=== PATIENT | female | born 1945 | race Caucasian/White ===

== ENCOUNTER 2017-06-05 22:07 | Inpatient (IN) | payer MEDICARE, OTHER ==
[~2017-06-05] VITALS: Ht 175.3 cm; Wt 63.5 kg
[2017-06-05 23:12] LABS: ACETAMINOPHEN < 2.0 ug/mL (10-30)
--- NOTE | 2017-06-05 23:35 | NUR ---
PT IN BED RESTING QUIETLY WATCHING TV. BED IN LOWEST POSITION. BEDRAIL UP. CALL LIGHT WITHIN REACH. NO SIGNS/SYMPTOMS OF DISTRESS WITNESSED BY NURSE OR EXPRESSED BY PT AT THIS TIME.
--- NOTE | 2017-06-05 23:50 | NUR ---
REPORT GIVEN TO GOLDY VICTORIA
[2017-06-06 00:35] VITALS: BP 141/95
--- NOTE | 2017-06-06 00:35 | NUR ---
Pt. admitted to MHU, under care of Dr. PAGE/MARZENA Belongs List completed
--- NOTE | 2017-06-06 01:00 | NUR ---
ADMISSION NOTES: 71 Y.O FEMALE BROUGHT TO MHU FROM ER VIA GURNEY, ACCOMPANIED BY ER NURSE, Pt ON A 5150 HOLD FOR GD. ACCORDING TO THE HOLD, Pt HAS BEEN LIVING ALONE IN "UNLIVABLE" CONDITION PER PLATE SENSITIZER, AND RECENTLY PLACED HER IN A SNF. Pt HAS HAD FREQUENT RECENT FALLS AND WAS UNABLE TO CONTINUE CARE AT SNF DUE TO REPEATED FALLS. Pt HAS CHRONIC ETOH ABUSE, HAS POOR HEALTH, AND REFUSED CARE AT HOME. Pt HAS BEEN NON-COMPLIANT WITH FOLLOW-UP CARE. Pt IS VERY CONFUSED AND PRESENTS DELUSIONS. RN CONCURS WITH HOLD. ADVISEMENT AND PATIENT RIGHTS HANDBOOK GIVEN. UPON FACE TO FACE ASSESSMENT, Pt APPEARS TO REFLECT WHAT IS ON THE HOLD. Pt IS A/O X 2 BUT FORGETFUL AND CONFUSED DURING CONVERSATION. Pt WAS INITIALLY COOPERATIVE WITH ASSESSMENT BUT INCREASINGLY BECAME AGITATED WHEN ASKED MORE QUESTIONS. DENIES DEPRESSION OR ANXIETY, DENIES SUICIDAL IDEATION. Pt AGREED TO CONTRACT TO SAFETY INSIDE THE HOSPITAL. Pt EXHIBITS FLAT AFFECT BUT MAINTAINS GOOD EYE CONTACT. Pt APPEARS UNKEMPT, DISHEVELED, AND MALODOROUS. SKIN WAS ASSESSED, MOSTLY INTACT BUT NOTED ABRASION AND REDNESS ON BOTH FOREARMS. PER Pt HX REPORT, WOUNDS ARE CONSISTENT WITH RECENT FALLS. Pt AGREED TO TAKE A SHOWER. Pt GAVE PERMISSION TO CONTACT HER FRIEND, [KENTON MEJIA [phone]], AND NOTIFY HER OF HER HOSPITALIZATION. NURSE WILL CONTACT AT A MORE CONVENIENT TIME. DR. PAGE AND DR. IVAN HAVE BOTH BEEN NOTIFIED OF ADMISSION, ORDERS RECEIVED. Pt WAS INITIALLY COOPERATIVE AND COMPLIANT DURING ADMISSION ASSESSMENT BUT BECAME AGITATED AND COMBATIVE WHEN NURSE TRIED TO ASSIST HER TO BED. Pt WAS PLACED ON DEMETRIUS-CHAIR NEXT TO NURSE'S STATION UNTIL HER BEHAVIOR CALMED AND WENT TO SLEEP IN BED AFTERWARDS. CONTRABAND PLACED IN UNIT LOCKER. IN STABLE CONDITION, WITH NOTED ELEVATED BLOOD PRESSURE. WILL CONTACT PHYSICIAN FOR FURTHER ORDERS.
[2017-06-06] MEDS ORDERED: LORAZEPAM 0.5 MG TABLET PO PRN ×2 (02:15→14:30)
[2017-06-06] MEDS ORDERED: MAG HYDROX/AL HYDROX/SIMETH 30 ML LIQUID UDC PO PRN (02:15)
[2017-06-06] MEDS ORDERED: MAGNESIUM HYDROXIDE 30 ML LIQUID UDC PO PRN (02:15)
[2017-06-06] MEDS ORDERED: ZOLPIDEM 5 MG TABLET PO PRN (02:15)
[2017-06-06] MEDS ORDERED: ACETAMINOPHEN 325 MG TABLET PO PRN (02:15)
--- NOTE | 2017-06-06 05:22 | NUR ---
Pt WOKE UP AT 0440 TO USE THE BATHROOM. Pt WAS ASSISTED BY FILTER PLANT SUPERVISOR AND WOOD BOAT BUILDER SUPERVISOR, NOTED AGITATION WHILE DIAPER WAS BEING PLACED. Pt WAS UNABLE TO GO BACK TO SLEEP AND KEPT GETTING UP FROM BED SETTING OFF THE ALARM. Pt PLACED ON DEMETRIUS-CHAIR NEXT TO NURSE'S STATION. CURRENTLY NO AGGRESSIVE BEHAVIOR NOTED WHILE IN CHAIR BUT Pt IS RESTLESS AND CONTINUOUSLY TRYING TO GET OUT OF CHAIR.
--- NOTE | 2017-06-06 07:00 | NUR ---
RECEIVED REPORT FROM STEVEDORING SUPERVISOR NURSE, PATIENT UP IN [facility], NO ACUTTE DISTRESS NOTED. CALM AT THIS TIME BUT WHEN APPROACHED BECOMES HYPERVERBAL W/ DELUSIONS NOTED. PER STEVEDORING SUPERVISOR PATIENT HAD EPISODES OF AGITATION DURING ASSESSMENTS. NO C/O PAIN OR DISCOMFORT AT THIS TIME. COMFORT MEASURES PROVIDED. WILL CONTINUE TO MONITOR CLOSELY.
[2017-06-06 08:00] VITALS: BP 154/78
--- NOTE | 2017-06-06 13:13 | NUR ---
PATIENT NOTED WITH HIGH BLOOD PRESSURE OF 188/90 AND HR OF 101, INFORMED AND LEFT MESSAGE FOR DR. LEIGH, RECEIVED NEW ORDERS FOR HYDRALAZINE 50 MG PO Q 6HRPRN FOR SBP>165. ORDERS NOTED AND CARRIED OUT.
[2017-06-06] MEDS ORDERED: hydrALAZINE HCL 50 MG TABLET PO PRN (13:15)
[2017-06-06] MEDS: LORAZEPAM 1 MG TABLET PO PRN (15:59)
--- NOTE | 2017-06-06 16:33 | NUR ---
Patient bp 143/90 hr 124, after hydralazine 50mg q6prn. patient also noted to be anxious and hyperverbal, ativan given. will continue to monitor.
--- NOTE | 2017-06-06 16:35 | NUR ---
Notified Dr. Arias of elevated blood pressure and heart rate. awaiting call back will continue to monitor.
--- NOTE | 2017-06-06 16:45 | NUR ---
DR. LEIGH AWARE OF ELEVATED BP AND HR, NO NEW ORDERS. WILL CONTINUE TO OBSERVE.
[2017-06-06 20:00] VITALS: BP 146/83
[2017-06-06] MEDS ORDERED: QUETIAPINE FUMARATE 25 MG TABLET PO SCH (21:00)
--- NOTE | 2017-06-06 23:21 | NUR ---
GPS: PATIENT UNABLE TO SLEEP.AMBIEN 5 MG PO GIVEN FOR SLEEP.
--- NOTE | 2017-06-07 00:21 | NUR ---
GPS: PATIENT IS SLEEPING NOW. PRN EFFECTIVE.
[2017-06-07] MEDS: LORAZEPAM 1 MG TABLET PO PRN ×2 (01:01→08:20)
--- NOTE | 2017-06-07 01:02 | NUR ---
patient is very agitated. getting out of bed.and combative to staff. ativan 1 mg po given.
--- NOTE | 2017-06-07 02:02 | NUR ---
GPS: PATIENT IS CALM NOW. PRN EFFECTIVE.
--- NOTE | 2017-06-07 06:24 | NUR ---
GPS: Remain uncooperative with nursing care. prn for sleep and anxiety given and effective.slept 5 hrs through the night. assisted with adl's.kept clean and dry. no behavior problem noted at this time. continue plan of care.
[2017-06-07 07:30] VITALS: BP 124/67
--- NOTE | 2017-06-07 07:45 | NUR ---
RECEIVED REPORT FROM BOBTAIL DRIVER NURSE, PATIENT UP IN [facility], NO ACUTE DISTRESS NOTED. CALM AT THIS TIME BUT WHEN APPROACHED BECOMES HYPERVERBAL W/ DELUSIONS NOTED. PER BOBTAIL DRIVER PATIENT HAD EPISODES OF AGITATION DURING ASSESSMENTS. NO C/O PAIN OR DISCOMFORT AT THIS TIME. WILL CONTINUE TO MONITOR CLOSELY.
--- NOTE | 2017-06-07 08:40 | NUR ---
patient is very agitated. getting out of bed.and combative to staff. ativan 1 mg po given.
--- NOTE | 2017-06-07 11:37 | NUR ---
Discharge Planning Note: SW left a voicemail for patient's APS worker Mally Rezaquez [[phone]] on 06/07 at 11:35am. JAZLYN will continue to follow up.
--- NOTE | 2017-06-07 11:48 | NUR ---
UR Note: JAZLYN called [facility] [[phone]] to inquire about patient's manager of case. JAZLYN spoke with Claudia at [facility] who stated patient has not been assigned a manager of case. JAZLYN will continue to follow up.
[2017-06-07 14:51] VITALS: BP 125/89
--- NOTE | 2017-06-07 15:34 | NUR ---
Initial DC Plan: Patient currently lives home alone [[address]. [place], [place] [address]; [phone]]. SW will continue to follow up with patient's APS worker Mally Browning [[phone]] to see if patient is able to return home. JAZLYN will follow up with MD, patient, and patient's friend Lyly [[phone]] to discuss most appropriate discharge plans.
[2017-06-07 18:09] LABS: CARBON DIOXIDE 24 mmol/L (21-32); CHLORIDE 103 mmol/L (98-107); CREATININE 0.7 mg/dL (0.6-1.3); GLUCOSE 114 mg/dL (74-106); POTASSIUM 4.1 mmol/L (3.5-5.1); UREA NITROGEN, BLOOD 10 mg/dL (7-18)
[2017-06-07 18:31] LABS: *BILIRUBIN,URIN NEGATIVE (NEGATIVE); *BLOOD, URINE NEGATIVE (NEGATIVE); *CLARITY,URINE SLIGHTLY CLOUDY (CLEAR); *KETONES,URINE TRACE (NEGATIVE); *PROTEIN,URINE NEGATIVE (NEGATIVE); LEUKOCYTE ESTERASE ,URINE 1+ (NEGATIVE); NITRITE, URINE POSITIVE (NEGATIVE); PH,URINE 5.5 (5.0-8.0); UGLUCOSE NEGATIVE (NEGATIVE)
[2017-06-07 18:40] LABS: ALANINE AMINOTRANSFERASE 19 U/L (14-59); ALKALINE PHOSPHATASE 91 U/L (50-136); ASPARTATE AMINOTRANSFERASE 20 U/L (15-37); BILIRUBIN,TOTAL 2.2 mg/dL (0.2-1.0); TOTAL PROTEIN, SERUM 6.9 g/dL (6.4-8.2)
[2017-06-07 18:54] LABS: *COLOR,URINE YELLOW (YELLOW); BACTERIA,URINE MANY /HPF (NONE SEEN); MUCUS,URINE MANY /LPF (0-FEW); RBC,URINE 0-3 /HPF (0-3); SQUAMOUS EPITHELIAL CELL,UR FEW /HPF (NONE SEEN); WBC,URINE 50-80 /HPF (0-3)
[2017-06-07 19:03] LABS: THYROID STIMULATING HORMONE 0.888 mIU/mL (0.358-3.740)
--- NOTE | 2017-06-07 19:30 | NUR ---
RECEIVED Pt IN HALLWAY NEXT TO NURSE'S STATION SITTING IN DEMETRIUS-CHAIR. PER DAY SHIFT NURSE, Pt WAS AGITATED DURING THE MORNING AND PLACED IN DEMETRIUS-CHAIR. Pt WAS GIVEN ATIVAN PO @ BREAKFAST AND HAS BEEN CALM IN DEMETRIUS-CHAIR THROUGHOUT THE DAY. UPON NURSE ASSESSMENT TONIGHT, Pt WAS INCREASINGLY GETTING AGITATED AT STAFF AND OTHER PATIENTS. A/O X 2 BUT CONFUSED AND FORGETFUL. Pt SPEECH IS PRESSURED AND TANGENTIAL WITH RAMBLING. WILL CLOSELY MONITOR Pt THROUGHOUT SHIFT.
[2017-06-07 19:53] VITALS: BP 128/71
[2017-06-07] MEDS ORDERED: HALOPERIDOL LACTATE 5 MG/1 ML VIAL IM ONE (21:00)
[2017-06-07] MEDS: QUETIAPINE FUMARATE 25 MG TABLET PO SCH (21:00)
[2017-06-07] MEDS ORDERED: LORAZEPAM 2 MG/1 ML VIAL IM ONE (21:00)
--- NOTE | 2017-06-07 21:10 | NUR ---
Pt WAS GETTING INCREASINGLY AGITATED AND CURSING AT NURSING STAFF AND OTHER PATIENTS. REFUSED ALL NIGHT MEDS AND PRN MEDS. ALL LESS RESTRICTIVE INTERVENTIONS WERE DONE BUT DID NOT HELP CALM Pt BEHAVIOR. NOTIFIED DR. LARSON OF BEHAVIOR AND RECEIVED ORDERS FOR ATIVAN 1MG IM INJ AND HALDOL 1 MG IM INJ. ADMINISTERED IM INJ WITH OTHER NURSING STAFF AND WELDER AND FITTER. WILL MONITOR Pt BEHAVIOR THROUGHOUT SHIFT.
--- NOTE | 2017-06-08 01:55 | NUR ---
Pt SLEPT AT AROUND MIDNIGHT BUT WOKE UP @ 0150 AND TRIED TO GET OUT OF BED. NURSE AND BRINEYARD SUPERVISOR BOTH ATTENDED TO Pt IN HER ROOM, Pt STATED, "I NEED TO GO TO THE BATHROOM." Pt DIAPER AND PANTS WERE CHANGED, Pt WAS NOTED AGITATED AND REFUSED TO BE CHANGED. HOWEVER, Pt WAS NOTED SLEEPY DURING HYGIENE CARE AND FELL ASLEEP SOON DIAPER CHANGE WAS DONE.
--- NOTE | 2017-06-08 06:37 | NUR ---
Pt HAS BEEN ASLEEP SINCE SINCE DIAPER CHANGE @ 0155 AND HAS NOT HAD ANY AGGRESSIVE BX. Pt DID NOT REFUSE BLOOD DRAW THIS MORNING.
[2017-06-08 07:30] VITALS: BP 130/64
--- NOTE | 2017-06-08 07:30 | NUR ---
Shift report given by nightshift RN. Pt in bed asleep with her head at the foot of the bed. Easily arousable to name. Received chemical restraints during night baker for aggresive behavior towards staff and pts and refusing care. No adverse side effects noted. In fair condition at this time. VS WNL. No acute distress noted. No SOB. Appears comfortable at this time. Will continue to monitor.
[2017-06-08 07:31] LABS: BASOPHILS # (AUTO) 0.1 K/uL (0.0-8.0); BASOPHILS % (AUTO) 1.3 % (0.0-2.0); CARBON DIOXIDE 26 mmol/L (21-32); CHLORIDE 105 mmol/L (98-107); CREATININE 0.7 mg/dL (0.6-1.3); EOSINOPHILS # (AUTO) 0.1 K/uL (0.0-0.7); EOSINOPHILS % (AUTO) 1.9 % (0.0-7.0); GLUCOSE 96 mg/dL (74-106); HEMATOCRIT 41.8 % (31.2-41.9); HEMOGLOBIN 14.2 g/dL (10.9-14.3); LYMPHOCYTES # (AUTO) 2.2 K/uL (20.0-40.0); LYMPHOCYTES % (AUTO) 37.9 % (20.5-51.5); MEAN CORPUSCULAR HEMOGLOBIN 34.2 uug (24.7-32.8); MEAN CORPUSCULAR HGB CONC 34 g/dL (32.3-35.6); MEAN CORPUSCULAR VOLUME 100.6 fL (75.5-95.3); MONOCYTES # (AUTO) 0.6 K/uL (2.0-10.0); MONOCYTES % (AUTO) 10.4 % (0.0-11.0); NEUTROPHILS # (AUTO) 2.9 K/uL (1.8-8.9); NEUTROPHILS % (AUTO) 48.5 % (38.5-71.5); PLATELET COUNT (AUTO) 179 K/uL (179-408); RED BLOOD CELL COUNT(AUTO) 4.15 MIL/uL (3.63-4.92); UREA NITROGEN, BLOOD 8 mg/dL (7-18); WHITE BLOOD COUNT (AUTO) 5.9 K/uL (3.8-11.8)
[2017-06-08] MEDS: CYANOCOBALAMIN 1000 MCG/ML VIAL IM SCH (09:18)
--- NOTE | 2017-06-08 12:02 | NUR ---
Relayed pt's positive UA results to Dr. Arias with new order to start Macrobid 100mg PO BID. New order noted and carried out. Pt made aware. Pt with ESTUARDO.
[2017-06-08] MEDS: NITROFURANTOIN/NITROFURAN MAC 100 MG CAPSULE PO SCH ×2 (12:26→17:59)
[2017-06-08 16:37] VITALS: BP 122/75
--- NOTE | 2017-06-08 17:30 | NUR ---
Pt remained in fair condition during shift. Pt continues to have delusions. Pt is labile and irritable. Pt is impulsive and makes up stories about staff and previous events. Reoriented. Denies pain at this time. Receiving Macrobid 100mg PO BID for her UTI. No adverse side effects noted. Pt is continent and assisted to bathroom as needed. Noted with clear pam foul smelling urine. PO fluids encouraged. Compliant with medication regimen at this time. Was able to tolerate being up in chair and attended activities. Interacts with staff and peers. All needs met at this time. Will continue to monitor for change.
[2017-06-08 20:30] VITALS: BP 118/58
[2017-06-08] MEDS: QUETIAPINE FUMARATE 25 MG TABLET PO SCH (20:57)
--- NOTE | 2017-06-08 22:28 | NUR ---
resting in bed at beginning of the shift. in fair condition. no acute distress noted. OOB to the BR with assist. No signs of agitation or restlessness noted. compliant with meds. in good spirits. calm and cooperative. vital signs taken and recorded. BP 118/58 HR 75 resp 18 pulse ox 96% on RA. Voiding ok, patient on macrobid for UTI. will monitor patient.
[2017-06-09] MEDS: LORAZEPAM 1 MG TABLET PO PRN ×2 (01:05→22:32)
--- NOTE | 2017-06-09 02:21 | NUR ---
patient gets very agitated when she woke up. screaming and shouting, ativan given as ordered. calm after.assisted to bed and fall back to sleep. will monitor for further agitation and restlessness.
[2017-06-09 07:30] VITALS: BP 133/62
--- NOTE | 2017-06-09 07:30 | NUR ---
GPS: Shift report given by nightshift RN. Pt without significant change in condition during noc shift. Rec'd pt in bed asleep, easily arousable to name. In no acute distress noted. Rec'd PRN Ativan during noc shift for extreme agitation and attempting to get out of bed unassisted several times. Will monitor for further episodes of agitation and behavioral manifestations.
[2017-06-09] MEDS: CYANOCOBALAMIN 1000 MCG/ML VIAL IM SCH (08:58)
[2017-06-09] MEDS: NITROFURANTOIN/NITROFURAN MAC 100 MG CAPSULE PO SCH ×2 (08:58→17:29)
[2017-06-09 15:29] VITALS: BP 138/82
--- NOTE | 2017-06-09 17:53 | NUR ---
GPS: Pt remained in fair condition during shift. No significant change in condition. Showered and was up in gerichair in the dayroom for activities and lunch. Went back to bed after lunch and slept. Took all due medications. Still noted with delusions of events that she thinks is happening to her at the moment. Pt telling stories to her roommate of events that she claims happened last night. Reoriented as needed. Redirectable at times. Most of the time argumentative and is not agreeable. No agitation noted. No acute distress noted. Denies pain. Will continue to monitor for change.
[2017-06-09] MEDS: QUETIAPINE FUMARATE 25 MG TABLET PO SCH (20:12)
[2017-06-09 20:38] VITALS: BP 123/63
--- NOTE | 2017-06-09 22:41 | NUR ---
GPS: PATIENT IS AGITATED.BANGING ON SIDE TABLE. TRYING TO GET OUT OF BED. ATIVAN 1 MG PO GIVEN FOR AGITATION. BED ALARM ON FOR SAFETY.
--- NOTE | 2017-06-09 23:41 | NUR ---
GPS: PATIENT IS CALM NOW. PRN EFFECTIVE FOR ANXIETY.
[2017-06-10] MEDS ORDERED: TEMAZEPAM 7.5 MG CAPSULE PO SCH (00:45)
--- NOTE | 2017-06-10 05:57 | NUR ---
GPS:Pt remained uncooperative with sleeping medication and nursing care. continues to have delusions. Pt is labile and irritable. Denies pain at this time. Receiving Macrobid 100mg PO BID for her UTI. No adverse side effects noted. Pt is continent and assisted to bathroom as needed. PO fluids encouraged. slept 1:30 hrs only. refused to take restoril 7.5 mg po. Interacts with staff and peers. All needs met at this time. Will continue to monitor for change.
--- NOTE | 2017-06-10 07:19 | NUR ---
GPS: Shift report given by nightshift RN. Pt in fair condition. [facility]. Pt only slept 1.3 hours during noc shift. Was offered Restoril PRN but she refused. Pt with paranoid delusions of being "given poison because they are trying to kill me." Appears calm and in no acute distress at this time. Denies pain. No SOB. Will continue to monitor for further behavioral manifestations.
[2017-06-10 07:30] VITALS: BP 121/78
[2017-06-10] MEDS: LORAZEPAM 1 MG TABLET PO PRN ×2 (08:14→14:52)
[2017-06-10] MEDS: CYANOCOBALAMIN 1000 MCG/ML VIAL IM SCH (08:15)
[2017-06-10] MEDS: NITROFURANTOIN/NITROFURAN MAC 100 MG CAPSULE PO SCH ×3 (08:15→17:20)
[2017-06-10] MEDS: ASPIRIN EC 81 MG TABLET.DR PO SCH (13:46)
--- NOTE | 2017-06-10 15:00 | NUR ---
Pt in bed, appears to be agitated, restless, and responding to internal stimuli. Pt attempting to get out of bed without assistance several times. Unable to redirect pt and reorient. Becomes agitated with each attempt. Administered PRN PO Ativan. High risk for fall and injury. Will monitor closely.
[2017-06-10 15:27] VITALS: BP 113/71
[2017-06-10] MEDS ORDERED: OLANZAPINE 10 MG VIAL IM ONE (17:00)
--- NOTE | 2017-06-10 17:00 | NUR ---
Ativan PO PRN ineffective. Pt up in gerichair next to nurses station. Became more agitated and restless. Attempting to ambulate unassisted. High risk for injury to herself. Responding to internal stimuli. Claiming there is a phone and a lady in front of her blocking her way. Unable to redirect pt. Yells and curses at staff with each attempt. Least restrictive measures ineffective. Called Dr. Workman and obtained order for Zyprexa 5mg IM x1 dose.
[2017-06-10 20:20] VITALS: BP 169/95
[2017-06-10] MEDS ORDERED: QUETIAPINE FUMARATE 25 MG TABLET PO SCH (21:00)
--- NOTE | 2017-06-10 21:05 | NUR ---
RECEIVED Pt SITTING IN DEMETRIUS-CHAIR IN THE HALLWAY NEXT TO NURSE'S STATION, AWAKE AND RESPONDING TO NAME, BUT CONFUSED AND DISORIENTED. Pt WAS AGITATED AND RESTLESS, CURSING AT STAFF AND CONTINUOUSLY TRIED TO GET OUT OF CHAIR. BANGING AT DEMETRIUS-CHAIR TRAY AND REFUSING CARE FROM STAFF. INITIALLY REFUSED MEDICATION BY ATTEMPTING TO GRAB MEDS FROM NURSE'S HAND TO THROW THE MEDS AWAY. AFTER SOME TIME AND ENCOURAGEMENT FROM STAFF, Pt AGREED TO TAKE MEDS. WILL CONTINUE TO CLOSELY MONITOR Pt BEHAVIOR THROUGHOUT SHIFT.
--- NOTE | 2017-06-11 06:45 | NUR ---
Pt WAS AWAKE THROUGHOUT THE NIGHT, NO HOSTILE OR COMBATIVE BEHAVIOR NOTED BUT WAS AGITATED AND TRYING TO GET OUT OF DEMETRIUS-CHAIR. Pt WAS SITTING NEXT TO NURSE'S STATION UNTIL 0500, WAS GIVEN SHOWER, AND WENT TO SLEEP AFTERWARDS. Pt IS NOW SLEEPING AND IN STABLE CONDITION WITHOUT NOTED DISTRESS.
--- NOTE | 2017-06-11 06:52 | NUR ---
NOTED REDNESS ON BOTH LEGS, PICTURES WERE TAKEN AND PLACED IN CHART. WILL ENDORSE TO DAY SHIFT NURSE TO F/U.
[2017-06-11 07:30] VITALS: BP 120/61
[2017-06-11] MEDS: NITROFURANTOIN/NITROFURAN MAC 100 MG CAPSULE PO SCH ×2 (08:21→16:46)
[2017-06-11] MEDS: ASPIRIN EC 81 MG TABLET.DR PO SCH (08:21)
[2017-06-11] MEDS: CYANOCOBALAMIN 1000 MCG/ML VIAL IM SCH (08:21)
[2017-06-11] MEDS: LORAZEPAM 1 MG TABLET PO PRN (08:30)
--- NOTE | 2017-06-11 11:36 | NUR ---
UR Note: SW called [facility] [[phone]] again to inquire about patient's director of casework. JAZLYN spoke with Genesis Ponce at [facility] who told SW to be in contact with [facility] [[phone]]. SW contact [facility] and was told to contact [employer] [[phone]]. JAZLYN spoke with ABY at [employer] [facility] and was told that patient's care is being managed by [employer]. ABY transferred JAZLYN to director of casework Fly. JAZLYN left a voicemail for Fly to inquire about providing clinicals and continued authorization. JAZLYN will continue to follow up regarding patient's case.
--- NOTE | 2017-06-11 13:32 | NUR ---
Patient on cardiac diet, requesting barbecue chicken for tomorrow's lunch ,oral intake is <75% of meals, RD will approve barbecue chicken at this time, this will meet the nutrition guideline for therapeutic -Cardiac diet. Addendum: 06/11/17 at [address] Amended: Links added.
[2017-06-11 15:15] VITALS: BP 125/50
--- NOTE | 2017-06-11 16:20 | NUR ---
UR Note: JAZLYN called patient's case repairer Fly at [employer] [[phone]] again to inquire about SNF authorization and Home Health authorization. JAZLYN left a voicemail for CM. JAZLYN will continue to follow up.
--- NOTE | 2017-06-11 20:00 | NUR ---
Received patient in her room in bed asleep but arousable to name and light touch. Patient noted a/o x 1 (name only). Pt noted confused. however, passive, calm and cooperative at this time. Safety emphasis. will continue to monitor closely.
[2017-06-11 20:52] VITALS: BP 117/62
[2017-06-11] MEDS ORDERED: QUETIAPINE FUMARATE 100 MG TABLET PO SCH (21:00)
[2017-06-12 07:30] VITALS: BP 111/53
--- NOTE | 2017-06-12 08:00 | NUR ---
THIS PATIENT STILL CONFUSED AND AND NOT EATING MEALS SLEEPING MOST OF SHIFT NO SELF DISCLOUSURE TO ANYONE , PLAN FOR DISCHARGE TODAY AFTER 5PM
[2017-06-12] MEDS: NITROFURANTOIN/NITROFURAN MAC 100 MG CAPSULE PO SCH ×2 (09:07→17:00)
[2017-06-12] MEDS: LORAZEPAM 1 MG TABLET PO PRN (09:07)
[2017-06-12] MEDS: ASPIRIN EC 81 MG TABLET.DR PO SCH (09:08)
[2017-06-12] MEDS: CYANOCOBALAMIN 1000 MCG/ML VIAL IM SCH (09:08)
--- NOTE | 2017-06-12 09:59 | NUR ---
UR Note: JAZLYN called [employer] again to inquire about patient's authorization and arranging home health. JAZLYN spoke with ABY at [employer] [[phone]] who stated she will have patient's CM Fly follow up with JAZLYN. JAZLYN faxed an order for home health to CM at [employer] [fax: [phone]]. JAZLYN will continue to follow up.
--- NOTE | 2017-06-12 12:09 | NUR ---
UR Note: JAZLYN spoke with patient's CM Fly at [employer] [[phone] Ext. [phone]] who stated he does not provide authorization for inpatient stays. Fly stated he will find out where to inquire about authorization and follow up with JAZLYN. Fly provided authorization for home health for patient. JAZLYN will continue to follow regarding inpatient authorization.
--- NOTE | 2017-06-12 14:01 | NUR ---
UR Note: JAZLYN spoke with YASMEEN Bill from [employer] [[phone] Ext. [phone]] who stated [facility] [[phone]] is responsible for authorization. JAZLYN spoke with Galen at [facility] who stated patient was not showing up in their system. JAZLYN transferred patient to [facility] Advocate Alli. JAZLYN spoke with Alli who stated patient was not in her system and transferred SW to another advocate at a different office. JAZLYN spoke with advocate Zeinab at [facility] who also stated patient was not in system and transferred SW to [facility] [[phone]]. JAZLYN was unable to reach anyone at [facility] as the automated machine only gave promotional information for discount programs and did not connect to a health group charter representative.
--- NOTE | 2017-06-12 14:28 | NUR ---
DC Note: Patient will be discharged to [facility] [[address] [place] [address]; [phone]] via private transportation. JAZLYN spoke with Santosh at the [facility] to confirm discharge plans. Transportation will be provided through [facility] [employer] [facility] [[phone]]. JAZLYN spoke with Rodriguez from [employer] who stated patient will be picked up between 5pm and 6pm. Patient is alert and oriented x2 and is aware and agreeable to discharge plans. Patient's friend Lyly Costa [[phone]] is aware and agreeable to discharge plans. Patient does not currently have an resistance brazer or psychiatrist. JAZLYN spoke with YASMEEN Bill at [employer] [[phone] Ext. [phone]] who stated patient is authorized to follow up with Dr. Godfrey Centeno (Electrical Journeyman) [[address]. [place] [address]; [phone]] and Dr. Mo Easley (Psychiatrist) [[address] [place] [address]]. SW attempted to schedule appointments for patient and left voicemails. Patient's friend Lyly stated she will also assist patient in scheduling appointments. JAZLYN submitted an order for home health to [facility], which has been pre-authorized though [employer] per Fly. JAZLYN spoke with Kathy at [facility] [[phone]] who stated the patient's clinical notes are being reviewed and that they will follow up regarding a home health assessment. Patient was provided a brief substance abuse intervention for alcohol abuse. Patient was provided substance abuse referrals for [facility] [ ], [facility] [ ], and [facility] [ ] and was encouraged to present at [facility] for intake on June 13, 2017 at 9am for intake. Patient was provided with additional outpatient mental health resources to [facility] , [facility] , and the National Suicide Prevention Lifeline . Addendum: 06/12/17 at 1504 by TANYA HOBSON Patient's psychiatrist will be Dr. Godfrey Ho [[address] [place]; [address]; [phone]]
[2017-06-12 14:50] VITALS: BP 141/76
--- NOTE | 2017-06-12 16:23 | NUR ---
ATTEMPTED TO CALL NURSING REPORT TO ODETTE AT [facility] AT 16 05 HE STATED HE WAS WANTING TO KNOW IF PATIENT COULD TAKE HER OWN MEDS? I STATED SHE SWALLOWS WELL AND SHE NEEDED MINIMAL ASSIST WITH AMBULATION, HE THEN TOLD ME THIS IS INDEPENDENT LIVING I THEN ASKE GRAPHICS PRODUCTION SPECIALIST TO TALK WITH ODETTE SHE DID AND PT SCHEDULED TO BE PICKED UP AT 1700 TO 1800 AND THAT PT WILL HAVE HOME HEALTH ALLEVIATION WHICH HAS BEEN PRE AUTHORIZED THROUGH [facility]
--- NOTE | 2017-06-12 17:45 | NUR ---
PATIENT D/CD TO [facility] VIA WHEEL [facility]AIR AND TRANSPORT [facility] WITH ALL BELONGINGS AND VALYABLES FROM THE [facility]AFE PATIENT REFUSED TO SIGN VAULUABLES
[2017-06-12] MEDS ORDERED: QUET100T PO (20:16)
[2017-06-12] MEDS ORDERED: CEPH-570 PO (20:19)
== END 2017-06-12 17:45 | DRG 885 ==
LOC: ER 22:10 → GPS 06-06 00:10
PROVIDERS: ADMIT Psychiatry & Neurology Psychiatry; ATTEND Nurse Practitioner Acute Care
DX: F29 Unspecified psychosis not due to a substance or known physiological condition (principal); G93.41 Metabolic encephalopathy; N39.0 Urinary tract infection, site not specified; J98.11 Atelectasis; F10.97 Alcohol use, unspecified with alcohol-induced persisting dementia; Y90.9 Presence of alcohol in blood, level not specified; B96.89 Other specified bacterial agents as the cause of diseases classified elsewhere; I10 Essential (primary) hypertension; F32.9 Major depressive disorder, single episode, unspecified; F10.10 Alcohol abuse, uncomplicated
CPT/HCPCS: 36415; 70450; 71045; 84443; 85025; 93005; 97112; 97116; 97530; A4663; G0480-TC; J1630; J2060; J2358; J3420

== ENCOUNTER 2017-06-12 19:01 | Inpatient (IN) | payer MEDICARE, OTHER ==
[~2017-06-12] VITALS: Ht 170.2 cm; Wt 62.7 kg
--- NOTE | 2017-06-12 19:14 | NUR ---
TRIAGE NOTE: UNABLE TO OBTAIN MEDICATIONS
--- NOTE | 2017-06-12 19:30 | NUR ---
PT BIB PRIVATE AMBULANCE DUE TO ISSUES WITH GAIT PER PT'S FACILITY. NO ACUTE DISTRESS NOTED. PT AAOX2. PT RESPIRATIONS EVEN + UNLABORED. DENIES CHEST PAIN/SOB. FALL PRECAUTIONS IMPLEMENTED.
--- NOTE | 2017-06-12 19:39 | NUR ---
CODE DAUGHERTY ACTIVATED. PT COMBATIVE, UNCOOPERATIVE, AND TRYING TO GET OUT OF BED.
--- NOTE | 2017-06-12 20:09 | NUR ---
LAB AT BEDSIDE FOR BLOOD DRAW.
[2017-06-12] MEDS ORDERED: QUETIAPINE FUMARATE 25 MG TABLET PO ONE (20:15)
[2017-06-12] MEDS ORDERED: OLANZAPINE 10 MG VIAL IM ONE ×2 (20:15→20:41)
[2017-06-12] MEDS ORDERED: QUET100T PO (20:16)
[2017-06-12] MEDS ORDERED: CEPH-570 PO (20:19)
[2017-06-12 20:21] LABS: BASOPHILS # (AUTO) 0.1 K/uL (0.0-8.0); EOSINOPHILS # (AUTO) 0.1 K/uL (0.0-0.7); EOSINOPHILS % (AUTO) 0.9 % (0.0-7.0); HEMATOCRIT 43.1 % (31.2-41.9); HEMOGLOBIN 14.4 g/dL (10.9-14.3); LYMPHOCYTES # (AUTO) 1.6 K/uL (20.0-40.0); LYMPHOCYTES % (AUTO) 27.3 % (20.5-51.5); MEAN CORPUSCULAR HEMOGLOBIN 33.5 uug (24.7-32.8); MEAN CORPUSCULAR HGB CONC 33 g/dL (32.3-35.6); MEAN CORPUSCULAR VOLUME 100.5 fL (75.5-95.3); MONOCYTES # (AUTO) 0.7 K/uL (2.0-10.0); MONOCYTES % (AUTO) 11.6 % (0.0-11.0); NEUTROPHILS # (AUTO) 3.5 K/uL (1.8-8.9); NEUTROPHILS % (AUTO) 59.2 % (38.5-71.5); PLATELET COUNT (AUTO) 222 K/uL (179-408); RED BLOOD CELL COUNT(AUTO) 4.28 MIL/uL (3.63-4.92)
[2017-06-12 20:29] LABS: CARBON DIOXIDE 26 mmol/L (21-32); CHLORIDE 103 mmol/L (98-107); CREATININE 0.7 mg/dL (0.6-1.3); GLUCOSE 106 mg/dL (74-106); POTASSIUM 3.9 mmol/L (3.5-5.1); UREA NITROGEN, BLOOD 12 mg/dL (7-18)
--- NOTE | 2017-06-12 20:30 | NUR ---
PT REFUSES CHEST XRAY. AWARE.
[2017-06-12 20:32] LABS: ETHANOL < 3 MG/DL (0-0)
[2017-06-12 20:37] LABS: ALANINE AMINOTRANSFERASE 19 U/L (14-59); ALKALINE PHOSPHATASE 88 U/L (50-136); ASPARTATE AMINOTRANSFERASE 20 U/L (15-37); BILIRUBIN,DIRECT 0.3 mg/dL (0.0-0.2); BILIRUBIN,TOTAL 1.3 mg/dL (0.2-1.0); TOTAL PROTEIN, SERUM 7.1 g/dL (6.4-8.2)
[2017-06-12 20:39] LABS: ACETAMINOPHEN < 2.0 ug/mL (10-30)
[2017-06-12] MEDS ORDERED: QUETIAPINE FUMARATE 100 MG TABLET ONE (20:41)
[2017-06-12 20:47] LABS: THYROID STIMULATING HORMONE 0.664 mIU/mL (0.358-3.740)
--- NOTE | 2017-06-12 21:37 | NUR ---
PT IS RESTING COMFORTABLY IN BED. NO ACUTE DISTRESS NOTED. SITTER AT BEDSIDE.
--- NOTE | 2017-06-12 21:49 | NUR ---
PATIENT IS UNABLE TO STAY STILL FOR CT SCAN, DR. WRIGHT AWARE AND OK NOT HAVE CT DONE.
[2017-06-12 21:59] LABS: *BILIRUBIN,URIN NEGATIVE (NEGATIVE); *BLOOD, URINE NEGATIVE (NEGATIVE); *CLARITY,URINE CLEAR (CLEAR); *COLOR,URINE YELLOW (YELLOW); *KETONES,URINE NEGATIVE (NEGATIVE); *PROTEIN,URINE NEGATIVE (NEGATIVE); *UROBILINOGEN,URINE 0.2 E.U./dl (NORMAL); LEUKOCYTE ESTERASE ,URINE NEGATIVE (NEGATIVE); NITRITE, URINE NEGATIVE (NEGATIVE); UGLUCOSE NEGATIVE (NEGATIVE)
[2017-06-12 22:00] LABS: BACTERIA,URINE FEW /HPF (NONE SEEN); RBC,URINE 0-3 /HPF (0-3); SQUAMOUS EPITHELIAL CELL,UR FEW /HPF (NONE SEEN); WBC,URINE 0-3 /HPF (0-3)
[2017-06-12 22:10] LABS: *AMPHETAMINE, URINE NEGATIVE (NEGATIVE); *BARBITURATE, URINE NEGATIVE (NEGATIVE); *CANNABINOID, URINE NEGATIVE (NEGATIVE); *COCCAINE, URINE NEGATIVE (NEGATIVE); *OPIATE, URINE NEGATIVE (NEGATIVE); *PHENCYCLIDINE SCREEN,URINE NEGATIVE (NEGATIVE)
--- NOTE | 2017-06-12 22:21 | NUR ---
Pt. admitted to [facility] , under care of TENISHA BECKFORD N.P. Belongs List completed. MRSA DONE
[2017-06-12] MEDS ORDERED: HYDROCODONE/APAP 5-325MG TABLET PO PRN (22:30)
[2017-06-12] MEDS ORDERED: MAGNESIUM HYDROXIDE 30 ML LIQUID UDC PO PRN (22:30)
[2017-06-12] MEDS ORDERED: ACETAMINOPHEN 325 MG TABLET PO PRN (22:30)
[2017-06-12] MEDS ORDERED: ONDANSETRON 4 MG/2 ML VIAL IV PRN (22:30)
--- NOTE | 2017-06-12 22:40 | NUR ---
Admitted a 71 y/o female with diagnosis of Acute Encephalopathy. AOx1-2, with confusion and behavioral issues. Cursing and talking inappropriately at times. With 1:1 sitter on bedside. Routine admission care done. Plan of care initiated. Safety measure initiated.
[2017-06-12 22:45] VITALS: BP 159/79
[2017-06-13] MEDS: ZOLPIDEM 5 MG TABLET PO PRN (00:03)
--- NOTE | 2017-06-13 06:07 | NUR ---
Pt slept well after midnight. Still asleep at this time. In no acute distress. IV site on Left AC intact and patent. With 1:1 sitter on bedside. Safety measure maintained and call flores within reach.
[2017-06-13] MEDS: PANTOPRAZOLE SODIUM 40 MG TABLET.DR PO SCH (06:18)
--- NOTE | 2017-06-13 07:10 | NUR ---
Received pt awake in bed with no apparent s/s of SOB, pain, distress or discomfort. 1:1 sitter provided for safety. Bed at lowest position for safety and call light within reach for assistance
[2017-06-13 08:13] VITALS: BP 154/61
[2017-06-13] MEDS: ASPIRIN 81 MG TAB.CHEW PO SCH (09:17)
--- NOTE | 2017-06-13 09:36 | NUR ---
Pt is verbally abusive and trying to leave the facility. Pt is confused. ARMATURE AND ROTOR WINDER reached and states to order a Psych evaluation.
--- NOTE | 2017-06-13 09:39 | NUR ---
Code nataliya called, pt is displaying aggressive behavior. Pt is confused and wants to walk home. States she is done having breakfast with my sister and wants to leave this house
--- NOTE | 2017-06-13 09:54 | NUR ---
Pt is going to to CT scan accompanied by a public address technician, sitter and data security coordinator
[2017-06-13] MEDS ORDERED: OLANZAPINE 10 MG VIAL IM ONE (10:00)
[2017-06-13 11:24] VITALS: BP 121/62
--- NOTE | 2017-06-13 13:10 | NUR ---
Psych consult took place
[2017-06-13] MEDS: OLANZAPINE ZYDIS 5 MG TAB.RAPDIS PO SCH ×2 (14:06→21:07)
[2017-06-13 15:38] VITALS: BP 111/69
[2017-06-13] MEDS ORDERED: CLONAZEPAM 0.5 MG TABLET PO SCH (17:00)
--- NOTE | 2017-06-13 18:47 | NUR ---
Pt has been compliant with noon and late afternoon medication. Pt has a sitter 1;1 for safety and has been noted to be combative and verbally abusive throughout the day. Pt is non-compliant with [facility] care. Pt is highly confused, pt does not understand where she is at. Pt has had six diaper changes today. Pt keeps asking why we do not let her go home.
--- NOTE | 2017-06-13 19:00 | NUR ---
Received patient in bed, very confused and disoriented. Sitter 1:1 at bedside for safety. Safety measures and fall precaution maintained. Continue care as planned.
--- NOTE | 2017-06-13 20:40 | NUR ---
Very agitated, abusive, trying to get out of bed. Assisted to a Almaz chair with 3 people assist. Patient unable to make a single step, very weak and unsteady on her feet.
--- NOTE | 2017-06-13 21:10 | NUR ---
Patient refused medication. Very agitated, verbally abusive, unable to stay put in her position, pulled out the blinds and trying to reach the window cord. Attempted to moved her away from the window but she spit on the nurses face.
--- NOTE | 2017-06-13 21:20 | NUR ---
Obtained order of Ativan IV from .
[2017-06-13] MEDS: LORAZEPAM 2 MG/1 ML VIAL IM PRN (21:35)
--- NOTE | 2017-06-13 21:40 | NUR ---
Ativan 1 mg IM given as ordered and needed with 5 nurses holding her down for safety. Will monitor.
--- NOTE | 2017-06-13 22:40 | NUR ---
Still awake but calmer. Sitting in the Almaz Chair quietly, just staring.
[2017-06-14] MEDS: LORAZEPAM 2 MG/1 ML VIAL IM PRN (04:35)
--- NOTE | 2017-06-14 04:36 | NUR ---
Became agitated, restless, combative, kicking staff, verbally abusive, and trying to slide down the Almaz-Chair. Required 5 people assist to transfer het=r to the bed and do skin/thai-care and administer Ativan as needed and ordered. Will continue to monitor.
--- NOTE | 2017-06-14 06:00 | NUR ---
Shift end report: Sleeping at this time. Sitter remain at bedside. No fall/injury reported. Safety measures and fall precaution maintained. Ativan IM given x 2 as ordered and needed. All needs attended and met. Continue current plan of care.
[2017-06-14] MEDS: PANTOPRAZOLE SODIUM 40 MG TABLET.DR PO SCH (06:50)
[2017-06-14 07:22] VITALS: BP 124/61
--- NOTE | 2017-06-14 07:54 | NUR ---
RECEIVED SHIFT REPORT FROM MUFFLE WORKER NURSE. 1:1 SITTER AT BEDSIDE FOR SAFETY. PT RESTING COMFORTABLY IN BED AT THIS TIME. INFORMED BY MUFFLE WORKER NURSE THAT PATIENT WAS VERBALLY ABUSIVE, COMBATIVE, AND HIGHLY AGITATED. NON ARE PRESENT AT THIS TIME. STABLE CONDITION. VITAL SIGNS STABLE. NO S/S OF DISTRESS. WILL CONTINUE TO MONITOR THROUGHOUT SHIFT. REORIENTATION NEEDED.
[2017-06-14] MEDS: OLANZAPINE ZYDIS 5 MG TAB.RAPDIS PO SCH ×2 (09:00→20:32)
[2017-06-14] MEDS: ASPIRIN 81 MG TAB.CHEW PO SCH (09:00)
--- NOTE | 2017-06-14 09:00 | NUR ---
NON-ADMINISTRATION MEDICATION: ASPIRIN AND ZYPREXA, PATIENT ASLEEP, DID NOT WANT TO BE WOKEN UP FOR MEDICATIONS.
[2017-06-14 11:55] VITALS: BP 121/51
--- NOTE | 2017-06-14 12:00 | NUR ---
LABORATORY REPORTED POSITIVE BLOOD CULTURE: GRAM POSITIVE BACILLUS, GROWTH OF DIPTHEROIDS. NOTIFIED.
[2017-06-14] MEDS ORDERED: LEUCOVORIN CALCIUM 5 MG TABLET PO SCH (12:15)
[2017-06-14] MEDS: CYANOCOBALAMIN 1000 MCG/ML VIAL IM SCH (12:15)
[2017-06-14] MEDS: THIAMINE HCL 100 MG TABLET PO SCH (12:15)
[2017-06-14] MEDS: CLONAZEPAM 0.5 MG TABLET PO SCH ×3 (13:00→20:32)
[2017-06-14] MEDS: FOLIC ACID 1 MG TABLET PO SCH (13:00)
--- NOTE | 2017-06-14 15:16 | NUR ---
NON-ADMINISTRATION MEDICATION: VITAMIN B12, VITAMIN B1, FOLIC ACID, KLONOPIN. PATIENT HAS BEEN VERY DROWSY AND SEDATED. RISK FOR ASPIRATION.
[2017-06-14 16:00] VITALS: BP 107/54
--- NOTE | 2017-06-14 16:30 | NUR ---
PATIENT WOKE UP AT THIS TIME FROM HEAVY SLEEPING THROUGHOUT THE DAY. PATIENT DID NOT SLEEP AT ALL DURING THE BUILD ENGINEER. PATIENT IS A LOT MORE ALERT/ORIENTED AT THIS TIME. REORIENTATION PROVIDED. NO COMBATIVENESS, NO AGITATION, NO VERBAL ABUSE. PATIENT IS PLEASANT AT THIS TIME.
--- NOTE | 2017-06-14 17:38 | NUR ---
PATIENT ALERT AT THIS TIME. COOPERATIVE, COMPLIANT. EATING DINNER AND TOLERATING WELL. NO SIGNS OF AGITATION, COMBATIVENESS, OR VERBAL ABUSE.
[2017-06-14 20:00] VITALS: BP 140/54
--- NOTE | 2017-06-14 21:00 | NUR ---
Pt noted to be alert, but disoriented to time and place. Reorientation provided. 1:1 sitter at bedside. No acute distress noted at this time. Bed in low, locked position. Bed alarm on. Call light within reach.Will continue to monitor closely.
[2017-06-15 04:00] VITALS: BP 132/54
--- NOTE | 2017-06-15 05:04 | NUR ---
Pt noted to have slept throughout the night and remains easily arousable to verbal and tactile stimuli. 1:1 sitter at bedside. Noted to be compliant and cooperative with all care. Safety measures provided. Will endorse to day shift nurse accordingly.
[2017-06-15] MEDS: PANTOPRAZOLE SODIUM 40 MG TABLET.DR PO SCH (06:28)
--- NOTE | 2017-06-15 08:00 | NUR ---
RESTING QUIET AND WELL IN BED NO SOB OR PAIN SITTER 1:1 AT BEDSIDE FOR SAFETY ON FALL /ASPIRATION PRECAUTION BED ALARM ON AND CALL LIGHT IN REACH
[2017-06-15] MEDS: CLONAZEPAM 0.5 MG TABLET PO SCH ×4 (09:00→21:20)
--- NOTE | 2017-06-15 10:00 | NUR ---
D/C PLANNING STILL WORKING BY WHISKEY FILTERER TO [facility] ON SATURDAY AWARE OF IT
--- NOTE | 2017-06-15 12:00 | NUR ---
STILL SLEEP QUIET AND EASILY AROUSABLE TO VERBAL AND TACTILE STIMULI SISTER 1;1 AT BEDSIDE CLOSED OBSERVATION
--- NOTE | 2017-06-15 14:00 | NUR ---
AWAKE VS TAKEN STABLE EAT LUNCH WELL AND TAKE AM MEDICINE ORDER COOPERATE AND CALM NO SOB OR PAIN OR AGITATION
[2017-06-15] MEDS: CYANOCOBALAMIN 1000 MCG/ML VIAL IM SCH (14:24)
[2017-06-15] MEDS: FOLIC ACID 1 MG TABLET PO SCH (14:24)
[2017-06-15] MEDS: THIAMINE HCL 100 MG TABLET PO SCH (14:24)
[2017-06-15] MEDS: OLANZAPINE ZYDIS 5 MG TAB.RAPDIS PO SCH ×2 (14:24→21:20)
[2017-06-15] MEDS: ASPIRIN 81 MG TAB.CHEW PO SCH (14:24)
[2017-06-15 15:00] VITALS: BP 96/57
--- NOTE | 2017-06-15 18:00 | NUR ---
STABLE HEMODYNAMIC STATUS NO AGITATION AND PAIN UNDER CONTROL SAFETY MEASURE PROVIDED SITTER 1:1 AT BEDSIDE AND CALL LIGHT WITHIN REACH
[2017-06-15] MEDS: LORAZEPAM 2 MG/1 ML VIAL IM PRN (18:43)
[2017-06-16] MEDS: ZOLPIDEM 5 MG TABLET PO PRN (00:14)
[2017-06-16] MEDS: LORAZEPAM 2 MG/1 ML VIAL IM PRN ×3 (01:40→18:28)
[2017-06-16] MEDS: PANTOPRAZOLE SODIUM 40 MG TABLET.DR PO SCH (06:40)
[2017-06-16 07:30] VITALS: BP 135/62
--- NOTE | 2017-06-16 07:35 | NUR ---
PATIENT WAS AGITATION ,COMBATIVE AT THIS TIME ATIVAN IM PRN GIVEN ORDER AND CLOSED OBSERVATION ON ASPIRATION AND FALL PRECAUTION SITTER 1:1 AT BEDSIDE
[2017-06-16] MEDS: THIAMINE HCL 100 MG TABLET PO SCH (07:57)
[2017-06-16] MEDS: CLONAZEPAM 0.5 MG TABLET PO SCH ×4 (07:57→20:54)
[2017-06-16] MEDS: CYANOCOBALAMIN 1000 MCG/ML VIAL IM SCH (07:57)
[2017-06-16] MEDS: OLANZAPINE ZYDIS 5 MG TAB.RAPDIS PO SCH ×2 (07:57→20:54)
[2017-06-16] MEDS: ASPIRIN 81 MG TAB.CHEW PO SCH (07:57)
[2017-06-16] MEDS: FOLIC ACID 1 MG TABLET PO SCH (07:57)
--- NOTE | 2017-06-16 10:00 | NUR ---
RESTING QUIET THIS TIME NO PAIN OR SOB
[2017-06-16 12:03] VITALS: BP 122/62
[2017-06-16 15:52] VITALS: BP 123/54
--- NOTE | 2017-06-16 16:00 | NUR ---
ASSIST UP IN CHAIR AND USE BRP WITH HELP NO SOB OR PAIN COOPERATE NO AGITATION PO FLD URIEL MOD AMT
--- NOTE | 2017-06-16 17:30 | NUR ---
STABLE HEMODYNAMIC STATUS ,CONFUSED BUT COOPERATE SOMETIMES NO COMBATIVE NO ACUTE DISTRESS ,PAIN UNDER CONTROL SAFETY MEASURE PROVIDED SITTER1:1 AT BED SIDE AND CALL LIGHT WITHIN REACH
[2017-06-16 20:00] VITALS: BP 129/74
--- NOTE | 2017-06-16 20:00 | NUR ---
1:1 sitter at bedside for safety. Pt observed to be pleasantly confused at this time. Reorientation provided. No s/s of acute distress. Vital signs WNL. Will continue to monitor closely.
[2017-06-17] MEDS: ZOLPIDEM 5 MG TABLET PO PRN (00:18)
--- NOTE | 2017-06-17 00:29 | NUR ---
Pt is noted to be restless at this time. Attempted to administer Ambien PRN, but pt wasted and threw on the floor. Will administer Ativan PRN as ordered. Will closely monitor.
[2017-06-17] MEDS: LORAZEPAM 2 MG/1 ML VIAL IM PRN ×2 (00:31→22:44)
[2017-06-17 04:00] VITALS: BP 123/54
--- NOTE | 2017-06-17 06:00 | NUR ---
No distress noted at this time. 1:1 sitter at bedside. Will endorse accordingly.
[2017-06-17] MEDS: PANTOPRAZOLE SODIUM 40 MG TABLET.DR PO SCH (06:06)
[2017-06-17 07:26] VITALS: BP 158/86
--- NOTE | 2017-06-17 07:30 | NUR ---
Shift report given by nightshift RN. Pt without significant change in condition during noc shift. Rec'd X1 dose of Ativan 1mg IM for severe agitation during noc shift. Rec'd pt in bed, asleep. No s/s of acute distress noted. 1:1 sitter at bedside for safety. Pt admitted for Acute Encephalopathy. Per report, pt continues to be confused per her baseline due to her psychiatric conditions. Pt with recent mental health unit stay. Pt on RA, no SOB noted at this time. Appears comfortable. Will continue to monitor for change.
[2017-06-17] MEDS: THIAMINE HCL 100 MG TABLET PO SCH ×2 (09:00→09:43)
[2017-06-17] MEDS: ASPIRIN 81 MG TAB.CHEW PO SCH ×2 (09:00→09:42)
[2017-06-17] MEDS: CYANOCOBALAMIN 1000 MCG/ML VIAL IM SCH ×2 (09:00→09:42)
[2017-06-17] MEDS: FOLIC ACID 1 MG TABLET PO SCH ×2 (09:00→09:43)
[2017-06-17] MEDS: CLONAZEPAM 0.5 MG TABLET PO SCH ×4 (09:42→20:19)
[2017-06-17] MEDS: OLANZAPINE ZYDIS 5 MG TAB.RAPDIS PO SCH ×2 (09:43→18:21)
[2017-06-17 12:18] VITALS: BP 110/47
[2017-06-17 14:34] VITALS: BP 136/61
[2017-06-17 15:26] VITALS: BP 134/64
--- NOTE | 2017-06-17 18:21 | NUR ---
Pt up in gerichair eating dinner. Noted with good apetite, taking PO fluids well. Cooperative with care at this time. Took all due meds at this time. Denies pain. Continues to have delusions that she is tired from looking for her cat all night last night. 1:1 sitter at bedside. All needs met at this time. Will continue to monitor for change.
--- NOTE | 2017-06-17 19:20 | NUR ---
Received pt in bed, awake, alert and verbally responsive but confused and disoriented. No behavioral issues noted at this time. Appears comfortable in bed. With 1:1 sitter at bedside. In no acute distress. Safety measure initiated.
[2017-06-17 20:00] VITALS: BP 116/53
[2017-06-17] MEDS ORDERED: OLANZAPINE ZYDIS 5 MG TAB.RAPDIS PO SCH (21:00)
[2017-06-18 06:02] VITALS: BP 136/64
[2017-06-18] MEDS: PANTOPRAZOLE SODIUM 40 MG TABLET.DR PO SCH (06:27)
--- NOTE | 2017-06-18 06:46 | NUR ---
Pt slept well last night after Ativan given for anxiety. Easily arouse to verbal and tactile stimuli. Remains confused and disoriented. 1:1 sitter at bedside. In no acute distress. O2 sat at % on RA. Needs anticipated to and met. Safety measure maintained and call flores within reach.
--- NOTE | 2017-06-18 07:30 | NUR ---
Received patient in bed, asleep, easily arousable, drowsy, in no distress. Bed alarm on, 1:1 sitter provided for safety. Will continue to monitor.
[2017-06-18] MEDS: CYANOCOBALAMIN 1000 MCG/ML VIAL IM SCH (08:50)
[2017-06-18] MEDS: ASPIRIN 81 MG TAB.CHEW PO SCH (08:50)
[2017-06-18] MEDS: THIAMINE HCL 100 MG TABLET PO SCH (08:50)
[2017-06-18] MEDS: FOLIC ACID 1 MG TABLET PO SCH (08:51)
[2017-06-18] MEDS: OLANZAPINE ZYDIS 5 MG TAB.RAPDIS PO SCH ×2 (08:51→16:45)
[2017-06-18] MEDS: CLONAZEPAM 1 MG TABLET PO SCH ×3 (08:56→16:45)
[2017-06-18] MEDS ORDERED: CLONAZEPAM 0.5 MG TABLET PO SCH (09:00)
--- NOTE | 2017-06-18 10:15 | NUR ---
Patient ate breakfast, assisted by CUSTOMER CARE MANAGER. Patient is cooperative with patient care, no behavioral issues noted at this time.
[2017-06-18 11:00] VITALS: BP 125/68
[2017-06-18] MEDS ORDERED: BISACODYL 10 MG SUPP.RECT RC ONE (14:00)
[2017-06-18] MEDS ORDERED: MAGNESIUM HYDROXIDE 30 ML LIQUID UDC PO ONE (14:00)
[2017-06-18 17:10] VITALS: BP 107/63
--- NOTE | 2017-06-18 17:15 | NUR ---
Discharged to [facility]. Report given to GOLDY Montaño. Patient is alert, in no distress, cooperative with patient care, no behavioral issues at this time. Awaiting for ambulance for transport.
--- NOTE | 2017-06-18 18:50 | NUR ---
Patient picked up by ambulance via gurney. Patient is alert, in no distress.
[2017-06-18] MEDS ORDERED: DOCUSATE SODIUM 100 MG CAPSULE PO SCH (21:00)
[2017-06-19] MEDS ORDERED: BISACODYL 10 MG SUPP.RECT RC PRN (14:00)
== END 2017-06-18 18:50 | DRG 896 ==
LOC: ER 19:01 → MED 22:28
PROVIDERS: ADMIT Internal Medicine; ATTEND Nurse Practitioner Acute Care
DX: F10.250 Alcohol dependence with alcohol-induced psychotic disorder with delusions (principal); G93.40 Encephalopathy, unspecified; E88.09 Other disorders of plasma-protein metabolism, not elsewhere classified; D75.89 Other specified diseases of blood and blood-forming organs; R17 Unspecified jaundice; E87.1 Hypo-osmolality and hyponatremia; J98.11 Atelectasis; F03.90 Unspecified dementia, unspecified severity, without behavioral disturbance, psychotic disturbance, mood disturbance, and anxiety; Y90.9 Presence of alcohol in blood, level not specified; R26.81 Unsteadiness on feet; F32.9 Major depressive disorder, single episode, unspecified; Z87.440 Personal history of urinary (tract) infections; R45.1 Restlessness and agitation; Z91.81 History of falling; Z86.73 Personal history of transient ischemic attack (TIA), and cerebral infarction without residual deficits; I67.2 Cerebral atherosclerosis; E53.8 Deficiency of other specified B group vitamins; K59.00 Constipation, unspecified
CPT/HCPCS: 36415; 70030-TC; 70450; 80307; 83605; 84443; 85025; 85730; 87040; 87086; 93005; A4663; G0480; G0480-TC; J2060; J2358; J3420